=== PATIENT | female | born 1960 | race Two or more races ===

== ENCOUNTER → 2025-05-07 | Outpatient (CLI) | payer MEDICARE, MEDICAID, SELFPAY ==
--- NOTE | 2025-05-07 12:00 | XR_ITS ---
Examination: Bone densitometry Date and time of exam:May 07, 2025 1224 hours INDICATIONS: Menopause age 47 that 7 vitamin D and calcium 5 years Technique: Lumbar spine and hip total bone mineralization values of an calculated. Peak reference and age match control results have been displayed. Findings: Lumbar spine total bone mineralization is0.868 gm/cm2. This is 1.6 standard deviations below peak reference. This is 0.2 standard deviations above age-matched controls. Hip total bone mineralization is 0.740 gm/cm2 This is 1.7 standard deviations below peak reference. This is 0.5 standard deviations below age-matched controls Impression: There is osteopenia based on lumbar spine measurements. There is osteopenia based on hip measurements
== END | disposition home or self-care (01) ==
LOC: CDIM 05-10 07:45
PROVIDERS: PCP Physician Assistant Medical; Referring Provider Physician Assistant Medical; Visit Provider Physician Assistant Medical
DX: M85.89 Other specified disorders of bone density and structure, multiple sites (principal)
CPT/HCPCS: 77080